=== PATIENT | female | born 1985 | race Caucasian/White ===

== ENCOUNTER 2019-04-07 06:37 | Observation (INO) | payer OTHER ==
[~2019-04-07] VITALS: Ht 170.2 cm; Wt 84.4 kg
--- NOTE | ~2019-04-07 | P ---
[facility] [place] [place] [address] PROCEDURE REPORT Name: FELIBERTO CEBALLOS Room #: 200-I [facility] M.RKrish#: [id number] Admission: 04/07/19 Attend Phys: Tereso Albrecht MD Discharge: Date of : 85 Report #: [id number] THIS REPORT FOR: //name// CC: [facility] physician/PCP Tereso Albrecht PREOPERATIVE DIAGNOSIS: Paroxysmal atrial fibrillation. POSTOPERATIVE DIAGNOSIS: Paroxysmal atrial fibrillation. PROCEDURES PERFORMED: 1. Atrial fibrillation ablation, CPT code 66524. 2. 3D mapping, CPT code 88749. 3. Intracardiac echo, CPT code 65947. HISTORY: The patient is a 34-year-old with a history of recurrent paroxysmal atrial fibrillation who is intolerant of antiarrhythmic drugs and is here for ablation. ANESTHESIA: The patient underwent general anesthesia with no anesthesia related complications. DESCRIPTION OF PROCEDURE: The patient underwent informed consent. We discussed the details of the procedure including the risks, which include but not limited to bleeding, vascular damage, cardiac perforation as well as stroke or DE. She understood these risks and is willing to proceed. The patient was brought to the EP laboratory in a fasting and sedated state and prepped and draped in a sterile fashion. I obtained access to the right femoral vein x 3, placing an 8, 9 and 7-Azeri short sheath using the modified Seldinger technique. Next, under fluoroscopy, I placed a Decapolar catheter easily in the coronary sinus, which was quite vertical and then placed an ice catheter into the right atrium. The patient had a cardiac CT scan showing two left and two right pulmonary veins. Using intracardiac ultrasound, it was evident that the patient had a very aneurysmal interatrial septum. Also, the two left veins were in very close proximity to each other. A detailed 3D geometry of the left atrium was created using [employer]. This was merged with the cardiac CT scan. Next, the patient was systemically heparinized. Next, a transseptal was performed using an SL1 sheath and a Orofino needle. I was able to find a nice thin part of the septum on my first approach. The interatrial septum was again very aneurysmal and as I advanced the sheath we were very close to the posterior left atrium. I did a counter clock somewhat to get a more anterior stick and was pointed right across from the two left-sided veins. I came on with the needle and advanced the dilator into the left atrium. A guidewire was advanced into the left superior pulmonary vein and I attempted to advance my sheath, but the aneurysmal septum would not allow me to really cross the septum. Therefore, I removed the SL1 sheath and advanced the cryo sheath and again this would not [address] [address] PROCEDURE REPORT Name: FELIBERTO CEBALLOS DELFINO Room #: 200-I [facility] M.R.#: [id number] Admission: 04/07/19 Attend Phys: Tereso Albrecht MD Discharge: Date of : 85 Report #: [id number] cross into the left atrium either. Therefore, I exchanged back to the SL1 sheath and now the sheath crossed into the left superior pulmonary vein. As such, I removed the dilator from the left superior pulmonary vein and placed the SL1 into the right atrium and I advanced a CordStreem Powerflex Pro 6 mm x 4 cm balloon, I performed 2 dilatations of the interatrial septum. I then was able to remove the balloon and the SL1 sheath and now I was able to easily advance the cryo sheath into the left atrium. Next, a 3D geometry was created using the [employer] Lasso catheter and then I placed the cryoablation balloon into the left atrium. Next, I started by isolating the left superior pulmonary vein. I performed an initial 4-minute freeze, which did not result in isolation. I performed a second freeze of 300 seconds duration, which resulted in isolation within 95 seconds. During the second freeze, I pushed the balloon higher to get rid of a gap along the roof. I then turned my attention to the left inferior pulmonary vein and performed an initial 4-minute freeze, which did not result in isolation. I then performed a second freeze with the balloon somewhat more superior and likely overlapping the meg between the left superior and left inferior pulmonary veins. During this freeze, the vein isolated within 55 seconds. I then re-interrogated the left superior pulmonary vein and this remained isolated. I then turned my attention to the right superior pulmonary vein. I performed phrenic nerve pacing with the Decapolar catheter placed in the subclavian position. I performed a single 4-minute freeze as this vein isolated within 75 seconds. I then went and re-interrogated the left-sided veins. Both of these veins remained isolated. The left superior pulmonary vein had somewhat large left atrial appendage signals, but obviously these did not capture. Therefore, I prepped to go to the right inferior pulmonary vein. This vein was somewhat challenging to get into as I felt that my guide sheath was almost falling into the right atrium. I was able to engage with the Achieve wire and we performed a single 4-minute freeze as this vein isolated within 21 seconds. As such, all veins were quickly isolated and the procedure took under an hour to complete. I pulled my cryo balloon and cryo sheath to the right atrium. Using intracardiac ultrasound, I verified there was no pericardial effusion. We did not see any other arrhythmias during the procedure with atrial pacing maneuvers. As such, the patient received systemic protamine and once ACT was within acceptable range, all catheters and sheaths were pulled and hemostasis was obtained. The patient awoke neurologically and hemodynamically intact with no complications and no significant bleeding. CONCLUSIONS: Successful AFib ablation with isolation of the 4 pulmonary veins. By: [id number] Tereso Albrecht MD /nt
[~2019-04-07 06:37] MED LIST: ASPIRIN325 PO; CARDIZEM CD120 MG PO; PROPAFENONE 15150 MG PO; XARELTO20 MG PO
[2019-04-07 07:11] VITALS: BP 123/84
[2019-04-07] MEDS ORDERED: TOPROL XL25 MG PO (07:20)
[2019-04-07] MEDS ORDERED: ALDACTONE50 MG PO (07:21)
[2019-04-07] MEDS ORDERED: PRADAXA150 MG PO (07:22)
[2019-04-07 07:31] LABS: ABSOLUTE NEUTROPHILS 4.9 thou/uL (1.4-8.2); BASOPHILS 0.6 % (0.0-2.0); EOSINOPHILS 1.3 % (0.0-3.0); HEMOGLOBIN 15.4 gm/dL (12.0-15.0); LYMPHOCYTES 31.5 % (24.0-44.0); MCH 30.1 pg (26.0-34.0); MCV 86.1 fL (80.0-100.0); MONOCYTES 6.8 % (1.0-8.0); PLATELET COUNT 275 thou/uL (150-400); POLYS 59.8 % (36.0-66.0); RBC 5.11 mil/uL (4.20-5.00); RDW 12.7 % (10.5-14.5); WBC 8.1 thou/uL (4.0-11.0)
[2019-04-07 07:45] LABS: CREATININE 0.9 mg/dL (0.6-1.0)
[2019-04-07 07:47] LABS: APTT 49.4 Seconds (24.5-32.8); INR 1.1; PROTIME 11.4 Seconds (9.3-11.4)
[2019-04-07 07:52] LABS: ALBUMIN 4.1 g/dL (3.4-5.0); TOTAL BILIRUBIN 0.4 mg/dL (<0.1-1.0); TOTAL PROTEIN 7.9 g/dL (6.4-8.2)
[2019-04-07 12:40] VITALS: BP 105/65
--- NOTE | 2019-04-07 15:39 | NUR ---
34 YO FEMALE ADMITTED TO 200 FROM [facility]. VSS, ALERT AND ORIENTED X 4, POST CATH VITALS TAKEN,
[2019-04-07 16:00] VITALS: BP 98/68
[2019-04-07 19:40] VITALS: BP 106/69
--- NOTE | 2019-04-08 03:15 | NUR ---
PATIENT ALERT AND ORIENTED X4. AT BEDSIDE THROUGHOUT THE NIGHT. DRESSING TO RIGHT GROIN INTACT WITH NO FURTHER BLEEDING FROM SHIFT CHANGE. UP WITH SBA TO BATHROOM. PATIENT VOIDED AT APPROX. 1915 WITH CLEAR YELLOW URINE. DENIES PAIN. POSSIBLE DISCHARGE IN AM. COOPERATIVE WITH CARE. RESTING QUIETLY. WILL MONITOR.
[2019-04-08 04:19] VITALS: BP 107/67
[2019-04-08 07:00] VITALS: BP 99/68
[2019-04-08] MEDS ORDERED: PROPAFENONE 15150 MG PO (08:35)
[2019-04-08 10:06] VITALS: BP 99/68
--- NOTE | 2019-04-08 11:36 | NUR ---
ASSUMED CARE AT SHIFT CHANGE, ALERT AND OREINTED X4. S/B DR BORGES. DISCHARGE MEDICATION AND INSTRUCTIONS GIVEN TO PATIENT AND SPOUSE. PATIENT DISCHARGED HOME.
== END 2019-04-08 11:56 | disposition home or self-care (01) ==
LOC: CATH 06:37 → 2N 12:43
PROVIDERS: ADMIT Internal Medicine Cardiovascular Disease
DX: I48.0 Paroxysmal atrial fibrillation (principal)
CPT/HCPCS: 62110; 62900; 65020; 65040; 70005

== ENCOUNTER → 2019-04-12 | Outpatient (CLI) | payer OTHER ==
[~2019-04-12] MED LIST changes: +ALDACTONE50 MG PO; +PRADAXA150 MG PO; +TOPROL XL25 MG PO
--- NOTE | 2019-04-12 16:41 | 2DMMODE ---
[address] [address] 2 D/M-MODE ECHOCARDIOGRAM Name: FELIBERTO CEBALLOS Room #: REG [facility]#: [id number] Admission: 04/12/19 Attend Phys: Tereso Albrecht Discharge: Date of : 85 Date of Service: 04/12/19 1641 Report #: [id number] THIS REPORT FOR: //name// APPROVED REPORT Study performed: 04/12/2019 15:53:50 EXAM: Limited 2D, Doppler Echocardiogram Patient Location: Out-Patient Status: routine BSA: 1.91 HR: 101 bpm BP: 98/52 mmHg Rhythm: Tachycardia Other Information Study Quality: Adequate Indications Limited echo to rule out pericardial effusion. Status post ablation on 04/07/19. Hx: Afib. Left Ventricle There is normal LV segmental wall motion. Left ventricular systolic function is normal. LVEF is 55%. Right Ventricle The right ventricle is normal size. The right ventricular systolic function is normal. Atria The left atrium size is normal. The right atrium size is normal. Aortic Valve The aortic valve is normal in structure. Mitral Valve The mitral valve is normal in structure. Tricuspid Valve The tricuspid valve is normal in structure. Great Vessels IVC is normal in size and collapses >50% with [address] [place] [address] 2 D/M-MODE ECHOCARDIOGRAM Name: FELIBERTO CEBALLOS [id number] Admission: 04/12/19 Attend Phys: Tereso Albrecht Discharge: Date of : 85 Date of Service: 04/12/191640 Report #: [id number] inspiration. Pericardium Trace to small anterior pericardial effusion. <Conclusion> Left ventricular systolic function is normal. LVEF is 55%. The aortic valve is normal in structure. The mitral valve is normal in structure. The tricuspid valve is normal in structure. Trace to small anterior pericardial effusion. <ELECTRONICALLY SIGNED> By: Aki Morton MD 04/12/191640 40 40 Aki Morton MD /INF
== END ==
LOC: CV 15:39
DX: I31.3 Pericardial effusion (noninflammatory) (principal)